=== PATIENT | female | born 1990 | race Caucasian/White ===

== ENCOUNTER 2017-01-12 18:41 | Emergency (ER) | payer SELFPAY ==
[~2017-01-12] VITALS: Ht 170.2 cm; Wt 64.0 kg
[2017-01-12 19:29] VITALS: BP 152/87
== END 2017-01-12 19:29 | disposition left against medical advice (07) ==
LOC: ED 18:41
DX: Z53.21 Procedure and treatment not carried out due to patient leaving prior to being seen by health care provider (principal)

== ENCOUNTER 2017-07-25 00:56 | Emergency (ER) | payer SELFPAY ==
[~2017-07-25] VITALS: Ht 170.2 cm; Wt 68.0 kg
[2017-07-25 02:06] VITALS: BP 96/66
== END 2017-07-25 01:55 | disposition home or self-care (01) ==
LOC: ED 00:56
DX: T17.208A Unspecified foreign body in pharynx causing other injury, initial encounter (principal); F41.9 Anxiety disorder, unspecified; X58.XXXA Exposure to other specified factors, initial encounter; Y93.89 Activity, other specified; Y92.89 Other specified places as the place of occurrence of the external cause; Y99.8 Other external cause status

== ENCOUNTER 2017-10-05 00:21 | Emergency (ER) | payer OTHER ==
[~2017-10-05] VITALS: Ht 167.6 cm; Wt 66.7 kg
[2017-10-05 00:29] VITALS: Ht 167.6 cm; Wt 66.7 kg
[2017-10-05 00:58] LABS: BASOPHIL % 1.2 % (0-2); PLATELET COUNT 310 x10^3mcL (130-400); RED CELL DISTRIBUTION WIDTH 13.3 % (11.5-14.5)
[2017-10-05 01:06] LABS: CALCIUM 9.1 mg/dL (8.5-10.1); CARBON DIOXIDE 26.6 mmol/L (21-32); CHLORIDE SERUM 105 mmol/L (98-107); CREATININE SERUM 0.7 mg/dL (0.6-1.0); GFR1 > 60 mL/min; GLUCOSE SERUM 88 mg/dL (74-106); POTASSIUM SERUM 3.3 mmol/L (3.5-5.1); SODIUM SERUM 142 mmol/L (136-145)
[2017-10-05 01:10] LABS: ALBUMIN 4.1 g/dL (3.4-5.0); ALKALINE PHOSPHATASE 48 U/L (46-116); ALT/SGPT 21 U/L (14-59); AST/SGOT 14 U/L (15-37); BILIRUBIN TOTAL 0.8 mg/dL (0.20-1.00); TOTAL PROTEIN, SERUM 7.3 g/dL (6.4-8.2)
[2017-10-05 01:48] LABS: microscopic required? NO
[2017-10-05 01:54] LABS: UA SPECIFIC GRAVITY 1.015 (1.005-1.035); urine erythrocyte NEGATIVE (NEGATIVE)
[2017-10-05 09:39] LABS: MAGNESIUM 2.1 mg/dL (1.8-2.4); PHOSPHOROUS 4.5 mg/dL (2.5-4.9)
[2017-10-05 09:42] LABS: CHOLESTEROL/HDL RATIO 1.4
[2017-10-05 09:48] LABS: FREE THYROXINE INDEX 2.4 ug/dL (1.4-4.5); T4(THYROXINE) 6.7 ug/dL (4.7-13.3)
[2017-10-05 09:50] LABS: T3 TOTAL 0.95 ng/mL
[2017-10-05 09:57] LABS: AMPHETAMINE QUAL UR POSITIVE (NEG <=1000)
[2017-10-05 17:03] VITALS: BP 130/81
== END 2017-10-05 17:03 | disposition home or self-care (01) ==
LOC: ED 00:21
PROVIDERS: Emergency Medicine Emergency Medical Services; Family Medicine
DX: F23 Brief psychotic disorder (principal); F31.9 Bipolar disorder, unspecified
CPT/HCPCS: 84439; G0480; J3486; J7030; Q0092

== ENCOUNTER 2017-10-08 18:24 | Emergency (ER) | payer OTHER | END 2017-10-08 19:31 | disposition left against medical advice (07) | LOC: ED 18:24 | DX: Z53.21 Procedure and treatment not carried out due to patient leaving prior to being seen by health care provider (principal) ==

== ENCOUNTER 2017-10-08 23:30 | Emergency (ER) | payer OTHER ==
[~2017-10-08] VITALS: Ht 170.2 cm; Wt 68.0 kg
[2017-10-08 23:39] VITALS: Ht 170.2 cm; Wt 68.0 kg
[2017-10-09 06:18] VITALS: BP 117/72
== END 2017-10-09 06:18 | disposition home or self-care (01) ==
LOC: ED 23:30
DX: T78.40XA Allergy, unspecified, initial encounter (principal); X58.XXXA Exposure to other specified factors, initial encounter
CPT/HCPCS: J0171; J7512

== ENCOUNTER 2017-11-18 22:25 | Emergency (ER) | payer OTHER ==
[~2017-11-18] VITALS: Ht 170.2 cm; Wt 67.1 kg
[2017-11-18 22:55] VITALS: Ht 170.2 cm; Wt 67.1 kg
[2017-11-19 00:32] VITALS: BP 111/73
== END 2017-11-19 00:32 | disposition home or self-care (01) ==
LOC: ED 22:25
DX: F41.9 Anxiety disorder, unspecified (principal); Z88.8 Allergy status to other drugs, medicaments and biological substances

== ENCOUNTER 2017-11-22 15:13 | Emergency (ER) | payer OTHER ==
[~2017-11-22] VITALS: Ht 170.2 cm; Wt 68.0 kg
[2017-11-22 15:25] VITALS: Ht 170.2 cm; Wt 68.0 kg
[2017-11-22 16:57] VITALS: BP 110/71
== END 2017-11-22 16:57 | disposition home or self-care (01) ==
LOC: ED 15:13
DX: F29 Unspecified psychosis not due to a substance or known physiological condition (principal); F31.9 Bipolar disorder, unspecified

== ENCOUNTER 2017-12-27 01:45 | Emergency (ER) | payer OTHER ==
[~2017-12-27] VITALS: Ht 170.2 cm; Wt 68.0 kg
[2017-12-27 02:07] VITALS: Ht 170.2 cm; Wt 68.0 kg
[2017-12-27 02:28] VITALS: BP 100/61
== END 2017-12-27 02:28 | disposition home or self-care (01) ==
LOC: ED 01:45
DX: Z03.818 Encounter for observation for suspected exposure to other biological agents ruled out (principal)

== ENCOUNTER 2017-12-31 18:45 | Emergency (ER) | payer OTHER ==
[~2017-12-31] VITALS: Ht 175.3 cm; Wt 72.3 kg
[2017-12-31 18:50] VITALS: Ht 175.3 cm; Wt 72.3 kg
[2017-12-31 21:15] VITALS: BP 106/68
== END 2017-12-31 21:15 | disposition home or self-care (01) ==
LOC: ED 18:45
DX: R07.89 Other chest pain (principal); R05 Cough; R09.81 Nasal congestion; R06.02 Shortness of breath; Z88.8 Allergy status to other drugs, medicaments and biological substances

== ENCOUNTER 2018-02-18 15:51 | Emergency (ER) | payer OTHER ==
[2018-02-18 15:55] VITALS: Ht 170.2 cm
[2018-02-18 17:25] LABS: BASOPHIL % 0.8 % (0-2); PLATELET COUNT 306 x10^3mcL (130-400); RED CELL DISTRIBUTION WIDTH 13.3 % (11.5-14.5)
[2018-02-18 17:35] LABS: CALCIUM 9.4 mg/dL (8.5-10.1); CARBON DIOXIDE 26.8 mmol/L (21-32); CHLORIDE SERUM 101 mmol/L (98-107); CREATININE SERUM 0.7 mg/dL (0.6-1.0); GFR1 > 60 mL/min; GLUCOSE SERUM 79 mg/dL (74-106); POTASSIUM SERUM 3.7 mmol/L (3.5-5.1); SODIUM SERUM 138 mmol/L (136-145)
[2018-02-18 17:41] LABS: ALBUMIN 4.4 g/dL (3.4-5.0); ALKALINE PHOSPHATASE 57 U/L (46-116); ALT/SGPT 46 U/L (14-59); AST/SGOT 21 U/L (15-37); BILIRUBIN TOTAL 0.66 mg/dL (0.20-1.00)
[2018-02-18 17:42] LABS: TOTAL PROTEIN, SERUM 8.4 g/dL (6.4-8.2)
[2018-02-18 19:00] VITALS: BP 130/74
== END 2018-02-18 18:39 | disposition home or self-care (01) ==
LOC: ED 15:51
PROVIDERS: Emergency Medicine
DX: R07.89 Other chest pain (principal); R06.02 Shortness of breath; R11.0 Nausea; F31.9 Bipolar disorder, unspecified; Z88.5 Allergy status to narcotic agent
CPT/HCPCS: J0696; J1885; J7030; J7613; J7644

== ENCOUNTER 2018-04-14 04:29 | Emergency (ER) | payer OTHER ==
[~2018-04-14] VITALS: Ht 170.2 cm; Wt 75.0 kg
[2018-04-14 04:39] VITALS: BP 104/74; Ht 170.2 cm; Wt 75.0 kg
== END 2018-04-14 05:50 | disposition home or self-care (01) ==
LOC: ED 04:29
DX: R10.2 Pelvic and perineal pain (principal); F41.9 Anxiety disorder, unspecified; Z88.8 Allergy status to other drugs, medicaments and biological substances; Z88.1 Allergy status to other antibiotic agents; F31.9 Bipolar disorder, unspecified

== ENCOUNTER 2018-04-14 13:24 | Emergency (ER) | payer OTHER ==
[~2018-04-14] VITALS: Ht 170.2 cm; Wt 73.9 kg
[2018-04-14 13:29] VITALS: BP 101/67; Ht 170.2 cm; Wt 73.9 kg
== END 2018-04-14 13:34 | disposition left against medical advice (07) ==
LOC: ED 13:24
DX: Z53.21 Procedure and treatment not carried out due to patient leaving prior to being seen by health care provider (principal)

== ENCOUNTER 2018-04-15 23:04 | Emergency (ER) | payer OTHER ==
[2018-04-16 00:05] VITALS: BP 117/72
== END 2018-04-16 00:05 | disposition home or self-care (01) ==
LOC: ED 23:04
DX: N89.9 Noninflammatory disorder of vagina, unspecified (principal); F41.9 Anxiety disorder, unspecified; F31.9 Bipolar disorder, unspecified; Z13.89 Encounter for screening for other disorder; Z88.1 Allergy status to other antibiotic agents; Z88.8 Allergy status to other drugs, medicaments and biological substances

== ENCOUNTER 2018-05-24 04:43 | Emergency (ER) | payer OTHER ==
[~2018-05-24] VITALS: Ht 172.7 cm; Wt 76.7 kg
[2018-05-24 04:51] VITALS: BP 107/64
== END 2018-05-24 05:27 | disposition home or self-care (01) ==
LOC: ED 04:43
DX: F41.9 Anxiety disorder, unspecified (principal); J45.909 Unspecified asthma, uncomplicated

== ENCOUNTER 2018-06-11 00:33 | Emergency (ER) | payer OTHER ==
[~2018-06-11] VITALS: Ht 170.2 cm; Wt 73.9 kg
[2018-06-11 00:43] VITALS: Ht 170.2 cm; Wt 73.9 kg
[2018-06-11 01:16] LABS: microscopic required? NO
[2018-06-11 01:41] LABS: CALCIUM 9.3 mg/dL (8.5-10.1); CARBON DIOXIDE 31.6 mmol/L (21-32); CHLORIDE SERUM 102 mmol/L (98-107); CREATININE SERUM 0.6 mg/dL (0.6-1.0); GFR1 > 60 mL/min; GLUCOSE SERUM 93 mg/dL (74-106); POTASSIUM SERUM 3.7 mmol/L (3.5-5.1); SODIUM SERUM 139 mmol/L (136-145)
[2018-06-11 01:46] LABS: ALBUMIN 4.2 g/dL (3.4-5.0); ALKALINE PHOSPHATASE 45 U/L (46-116); ALT/SGPT 19 U/L (14-59); AST/SGOT 13 U/L (15-37); BILIRUBIN TOTAL 0.62 mg/dL (0.20-1.00)
[2018-06-11 01:47] LABS: urine erythrocyte NEGATIVE (NEGATIVE)
[2018-06-11 01:49] LABS: AMPHETAMINE QUAL UR NONE DETECTED (See below)
[2018-06-11 02:07] VITALS: BP 110/80
== END 2018-06-11 02:08 | disposition home or self-care (01) ==
LOC: ED 00:33
PROVIDERS: Specialist
DX: F20.9 Schizophrenia, unspecified (principal); Z13.89 Encounter for screening for other disorder; F31.9 Bipolar disorder, unspecified

== ENCOUNTER 2018-12-08 19:47 | Emergency (ER) | payer OTHER ==
[~2018-12-08] VITALS: Ht 170.2 cm; Wt 74.8 kg
[2018-12-08 19:54] VITALS: Ht 170.2 cm; Wt 74.8 kg
[2018-12-08 20:40] VITALS: BP 107/69
== END 2018-12-08 20:40 | disposition left against medical advice (07) ==
LOC: ED 19:47
DX: Z53.21 Procedure and treatment not carried out due to patient leaving prior to being seen by health care provider (principal)

== ENCOUNTER 2018-12-24 23:41 | Emergency (ER) | payer OTHER ==
[~2018-12-24] VITALS: Ht 170.2 cm; Wt 72.8 kg
[2018-12-24 23:53] VITALS: Ht 170.2 cm; Wt 72.8 kg
[2018-12-25 00:16] VITALS: BP 98/67
== END 2018-12-25 00:16 | disposition home or self-care (01) ==
LOC: ED 23:41
DX: F19.939 Other psychoactive substance use, unspecified with withdrawal, unspecified (principal); F41.9 Anxiety disorder, unspecified

== ENCOUNTER 2019-01-30 01:34 | Emergency (ER) | payer OTHER ==
[~2019-01-30] VITALS: Ht 170.2 cm; Wt 70.3 kg
[2019-01-30 01:37] VITALS: BP 112/74; Ht 170.2 cm; Wt 70.3 kg
[2019-01-30 02:25] LABS: microscopic required? NO
[2019-01-30 02:45] LABS: BASOPHIL % 0.6 % (0-2); PLATELET COUNT 327 x10^3mcL (130-400); UA SPECIFIC GRAVITY >=1.030 (1.005-1.035); urine erythrocyte NEGATIVE (NEGATIVE)
[2019-01-30 02:51] LABS: RED CELL DISTRIBUTION WIDTH 14.6 % (11.5-14.5)
[2019-01-30 02:52] LABS: AMPHETAMINE QUAL UR POSITIVE (See below)
[2019-01-30 02:55] LABS: CALCIUM 8.8 mg/dL (8.5-10.1); CARBON DIOXIDE 27.6 mmol/L (21-32); CHLORIDE SERUM 106 mmol/L (98-107); CREATININE SERUM 0.6 mg/dL (0.6-1.0); GFR1 > 60 mL/min; GLUCOSE SERUM 72 mg/dL (74-106); POTASSIUM SERUM 3.3 mmol/L (3.5-5.1); SODIUM SERUM 144 mmol/L (136-145)
[2019-01-30 03:05] LABS: ALBUMIN 3.6 g/dL (3.4-5.0); ALKALINE PHOSPHATASE 35 U/L (46-116); ALT/SGPT 15 U/L (14-59); AST/SGOT 15 U/L (15-37); BILIRUBIN TOTAL 0.37 mg/dL (0.20-1.00); TOTAL PROTEIN, SERUM 7.2 g/dL (6.4-8.2)
== END 2019-01-30 03:02 | disposition left against medical advice (07) ==
LOC: ED 01:34
PROVIDERS: Emergency Medicine
DX: F41.9 Anxiety disorder, unspecified (principal)
CPT/HCPCS: 36415; G0480

== ENCOUNTER 2019-01-30 03:50 | Emergency (ER) | payer OTHER ==
[~2019-01-30] VITALS: Ht 170.2 cm; Wt 68.9 kg
[2019-01-30 04:00] VITALS: BP 99/70
== END 2019-01-30 04:00 | disposition left against medical advice (07) ==
LOC: ED 03:50
DX: F41.9 Anxiety disorder, unspecified (principal)
CPT/HCPCS: 87491; 87591

== ENCOUNTER 2019-03-12 05:40 | Emergency (ER) | payer OTHER ==
[~2019-03-12] VITALS: Ht 172.7 cm; Wt 71.2 kg
[2019-03-12 05:48] VITALS: Ht 172.7 cm; Wt 71.2 kg
[2019-03-12 06:30] VITALS: BP 104/67
== END 2019-03-12 06:30 | disposition home or self-care (01) ==
LOC: ED 05:40
DX: F41.9 Anxiety disorder, unspecified (principal)

== ENCOUNTER 2019-08-17 11:02 | Emergency (ER) | payer OTHER ==
[~2019-08-17] VITALS: Ht 157.5 cm; Wt 77.6 kg
[2019-08-17 11:41] VITALS: BP 113/69; Ht 157.5 cm; Wt 77.6 kg
[2019-08-17 12:23] LABS: BASOPHIL % 0.2 % (0-2); PLATELET COUNT 349 x10^3mcL (130-400); RED CELL DISTRIBUTION WIDTH 16.4 % (11.5-14.5)
[2019-08-17 12:45] LABS: CALCIUM 9.5 mg/dL (8.5-10.1); CARBON DIOXIDE 30.6 mmol/L (21-32); CHLORIDE SERUM 104 mmol/L (98-107); CREATININE SERUM 0.7 mg/dL (0.6-1.0); GFR1 > 60 mL/min; GLUCOSE SERUM 98 mg/dL (74-106); POTASSIUM SERUM 4.2 mmol/L (3.5-5.1); SODIUM SERUM 140 mmol/L (136-145)
[2019-08-17 12:50] LABS: ALBUMIN 3.6 g/dL (3.4-5.0); ALKALINE PHOSPHATASE 75 U/L (46-116); ALT/SGPT 28 U/L (14-59); AST/SGOT 19 U/L (15-37); BILIRUBIN TOTAL 0.3 mg/dL (0.20-1.00); TOTAL PROTEIN, SERUM 7.8 g/dL (6.4-8.2)
== END 2019-08-17 13:04 | disposition home or self-care (01) ==
LOC: ED 11:02
PROVIDERS: Emergency Medicine
DX: F41.9 Anxiety disorder, unspecified (principal)
CPT/HCPCS: 36415

== ENCOUNTER 2019-09-28 02:01 | Emergency (ER) | payer OTHER ==
[~2019-09-28] VITALS: Ht 160 cm; Wt 77.6 kg
[2019-09-28 02:04] VITALS: Ht 160 cm; Wt 77.6 kg
[2019-09-28 02:10] VITALS: BP 116/72
== END 2019-09-28 02:10 | disposition left against medical advice (07) ==
LOC: ED 02:01
DX: Z53.21 Procedure and treatment not carried out due to patient leaving prior to being seen by health care provider (principal)

== ENCOUNTER 2019-09-28 06:47 | Emergency (ER) | payer OTHER ==
[~2019-09-28] VITALS: Ht 165.1 cm; Wt 72.6 kg
[2019-09-28 07:09] VITALS: Ht 165.1 cm; Wt 72.6 kg
[2019-09-28 08:08] LABS: AMPHETAMINE QUAL UR NONE DETECTED (See below)
[2019-09-28 09:27] VITALS: BP 97/61
== END 2019-09-28 09:27 | disposition home or self-care (01) ==
LOC: ED 06:47
PROVIDERS: Emergency Medicine
DX: K59.00 Constipation, unspecified (principal); F29 Unspecified psychosis not due to a substance or known physiological condition; F20.9 Schizophrenia, unspecified; F41.9 Anxiety disorder, unspecified; F17.210 Nicotine dependence, cigarettes, uncomplicated
CPT/HCPCS: 36415

== ENCOUNTER 2019-10-08 05:47 | Emergency (ER) | payer OTHER ==
[~2019-10-08] VITALS: Ht 165.1 cm; Wt 78.5 kg
[2019-10-08 05:56] VITALS: BP 119/74; Ht 165.1 cm; Wt 78.5 kg
== END 2019-10-08 06:25 | disposition left against medical advice (07) ==
LOC: ED 05:47
DX: R10.2 Pelvic and perineal pain (principal); Z13.9 Encounter for screening, unspecified

== ENCOUNTER 2019-11-22 22:43 | Emergency (ER) | payer OTHER ==
[~2019-11-22] VITALS: Ht 172.7 cm; Wt 79.5 kg
[2019-11-22 22:57] VITALS: BP 102/64; Ht 172.7 cm; Wt 79.5 kg
== END 2019-11-23 01:27 | disposition left against medical advice (07) ==
LOC: ED 22:43
DX: Z53.21 Procedure and treatment not carried out due to patient leaving prior to being seen by health care provider (principal)

== ENCOUNTER 2020-02-11 23:44 | Emergency (ER) | payer OTHER ==
[~2020-02-11] VITALS: Ht 170.2 cm; Wt 86.2 kg
[2020-02-11 23:54] VITALS: BP 110/71; Ht 170.2 cm; Wt 86.2 kg
== END 2020-02-12 01:00 | disposition left against medical advice (07) ==
LOC: ED 23:44
DX: Z53.21 Procedure and treatment not carried out due to patient leaving prior to being seen by health care provider (principal)

== ENCOUNTER 2020-02-12 10:36 | Emergency (ER) | payer OTHER | END 2020-02-12 10:45 | disposition left against medical advice (07) | LOC: ED 10:36 | DX: Z53.21 Procedure and treatment not carried out due to patient leaving prior to being seen by health care provider (principal) ==

== ENCOUNTER 2020-03-14 14:05 | Emergency (ER) | payer OTHER ==
[~2020-03-14] VITALS: Ht 172.7 cm; Wt 86.2 kg
[2020-03-14 14:12] VITALS: BP 109/75; Ht 172.7 cm; Wt 86.2 kg
== END 2020-03-14 16:24 | disposition left against medical advice (07) ==
LOC: ED 14:05
DX: Z53.21 Procedure and treatment not carried out due to patient leaving prior to being seen by health care provider (principal)

== ENCOUNTER 2020-04-05 14:08 | Emergency (ER) | payer OTHER ==
[~2020-04-05] VITALS: Ht 172.7 cm; Wt 77.1 kg
[2020-04-05 14:16] VITALS: Ht 172.7 cm; Wt 77.1 kg
[2020-04-05 16:42] LABS: CARBON DIOXIDE 27.3 mmol/L (21-32); CHLORIDE SERUM 103 mmol/L (98-107); CREATININE SERUM 0.6 mg/dL (0.6-1.0); GFR1 > 60 mL/min; GLUCOSE SERUM 97 mg/dL (74-106); POTASSIUM SERUM 4.4 mmol/L (3.5-5.1); SODIUM SERUM 139 mmol/L (136-145)
[2020-04-05 16:46] LABS: ALBUMIN 3.6 g/dL (3.4-5.0); ALKALINE PHOSPHATASE 96 U/L (46-116); ALT/SGPT 100 U/L (14-59); AST/SGOT 34 U/L (15-37); BILIRUBIN TOTAL 0.23 mg/dL (0.20-1.00); TOTAL PROTEIN, SERUM 7.4 g/dL (6.4-8.2)
[2020-04-05 17:02] VITALS: BP 126/81
[2020-04-05 17:09] LABS: PLATELET COUNT 351 x10^3mcL (130-400); RED CELL DISTRIBUTION WIDTH 13.5 % (11.5-14.5)
[2020-04-05 18:04] LABS: AMPHETAMINE QUAL UR POSITIVE (See below)
[2020-04-05 18:28] LABS: BAND NEUTROPHIL 0 % (0-10); BASOPHIL 0 % (0-2); MONOCYTE 3 % (0-7); SEGMENTED NEUTROPHILS 68 % (37-75); rbc morphology (normal/abnorm) NORMAL (NORMAL)
== END 2020-04-05 18:35 | disposition left against medical advice (07) ==
LOC: ED 14:08
PROVIDERS: Emergency Medicine
DX: N39.0 Urinary tract infection, site not specified (principal); F17.210 Nicotine dependence, cigarettes, uncomplicated; F11.10 Opioid abuse, uncomplicated
CPT/HCPCS: 99406; Q0092

== ENCOUNTER 2020-05-04 09:49 | Emergency (ER) | payer OTHER ==
[~2020-05-04] VITALS: Ht 172.7 cm; Wt 81.6 kg
[2020-05-04 10:01] VITALS: BP 112/89; Ht 172.7 cm; Wt 81.6 kg
== END 2020-05-04 10:39 | disposition left against medical advice (07) ==
LOC: ED 09:49
DX: Z53.21 Procedure and treatment not carried out due to patient leaving prior to being seen by health care provider (principal)

== ENCOUNTER 2020-07-13 11:34 | Emergency (ER) | payer OTHER ==
[~2020-07-13] VITALS: Ht 170.2 cm; Wt 97.5 kg
[2020-07-13 11:43] VITALS: Ht 170.2 cm; Wt 97.5 kg
[2020-07-13 13:02] VITALS: BP 120/79
== END 2020-07-13 13:02 | disposition left against medical advice (07) ==
LOC: ED 11:34
DX: L02.416 Cutaneous abscess of left lower limb (principal)
CPT/HCPCS: 84439; J2001